=== PATIENT | female | born 1965 | race American Indian/Alaskan Native ===

== ENCOUNTER 2016-12-10 08:50 | Emergency (ER) | payer MEDICARE ==
[2016-12-10 11:03] LABS: Alanine Aminotransferase 16 units/L (7-56); Albumin 3.6 g/dL (3.9-5); Albumin/Globulin Ratio 1.2 %; Alkaline Phosphatase 70 units/L (35-129); Bilirubin,Total 0.4 mg/dL (0.1-1.2); Total Protein 6.6 g/dL (6.3-8.2); Uric Acid 4.5 mg/dL (3.5-7.6)
[2016-12-10 11:05] LABS: Anion Gap 15 mmol/L; Blood Urea Nitrogen 9 mg/dL (7-17); Calcium 8.9 mg/dL (8.4-10.2); Carbon Dioxide 22 mmol/L (22-30); Chloride 103.9 mmol/L (98-107); Glucose 78 mg/dL (65-100); Potassium 4.3 mmol/L (3.6-5.0); Sodium 137 mmol/L (137-145)
[2016-12-10 11:06] LABS: Bilirubin,Direct < 0.2 mg/dL (0-0.2)
[2016-12-10 11:07] LABS: INR TNR (0.87-1.13); Partial Thromboplastin Time TNR Sec. (24.2-36.6)
[2016-12-10] MEDS ORDERED: TORADOL IM ONE (11:17)
[2016-12-10 11:19] LABS: Basophils % (Auto) 0.6 % (0.0-1.8); Hemoglobin 13.4 gm/dl (10.1-14.3); Mean Corpuscular HGB Conc 32 % (30-34); Mean Corpuscular Hemoglobin 28 pg (28-32); Mean Corpuscular Volume 87 fl (79-97); Red Blood Count 4.82 M/mm3 (3.65-5.03); White Blood Count 5.5 K/mm3 (4.5-11.0)
--- NOTE | 2016-12-10 11:19 | Emergency Department Report ---
ED General Adult HPI - General Chief complaint: Shoulder Injury Stated complaint: RT SHOULDER PAIN Time Seen by Provider: 12/10/16 11:06 Source: patient, RN notes reviewed, old records reviewed Mode of arrival: Ambulatory Limitations: No Limitations - History of Present Illness Initial comments: This is a 51-year-old female. She is a past medical history of diabetes and hypertension. The patient presents to the ER complaining of right-sided shoulder pain. The shoulder pain is at the shoulder, it does not radiate anywhere. It increases with palpation, and decreases with rest. There is no nausea, vomiting, diaphoresis, chest pain, shortness of breath. The patient reports a positive test in [place] in September. She is concerned that she may be . She is not homicidal or suicidal. She does not have access to guns or firearms. She is not experiencing hallucinations. She reports that she is taking Tylenol for pain. She reports no allergic reactions to Tylenol, even though her allergies listed include acetaminophen from Lortab. -: Gradual Location: right, upper extremity Severity scale (0 -10): 10 Quality: aching Consistency: intermittent Improves with: none Worsens with: none Associated Symptoms: denies other symptoms. denies: confusion, chest pain, cough, diaphoresis, fever/chills, headaches, loss of appetite, malaise, nausea/ vomiting, rash, seizure, shortness of breath, syncope, weakness - Related Data Home Medications Medication Instructions Recorded Confirmed Last Taken amLODIPine [Norvasc] 10 mg PO DAILY 05/22/15 12/10/16 3 Days Ago buPROPion [Wellbutrin] 150 mg PO BID 05/22/15 12/10/16 3 Days Ago metFORMIN [Glucophage] 500 mg PO BID 05/22/15 12/10/16 3 Days Ago Previous Rx's Medication Instructions Recorded Last Taken Type Quetiapine Fumarate [Seroquel] 100 mg PO BID #14 tablet 03/25/16 3 Days Ago Rx Ketorolac [Toradol] 10 mg PO Q6H PRN #20 tablet 12/10/16 Unknown Rx Allergies Allergy/AdvReac Type Severity Reaction Status Date / Time acetaminophen [From Lortab] Allergy Unknown Verified 12/10/16 10:37 hydrocodone bitartrate Allergy Unknown Verified 12/10/16 10:37 [From Lortab] ED Review of Systems ROS: Stated complaint: RT SHOULDER PAIN Other details as noted in HPI Constitutional: denies: fever, malaise Respiratory: denies: shortness of breath, SOB with exertion, SOB at rest Cardiovascular: denies: chest pain Gastrointestinal: denies: abdominal pain, nausea, diarrhea Genitourinary: denies: urgency, dysuria, discharge Musculoskeletal: arthralgia, myalgia Skin: denies: rash, lesions Neurological: as per HPI Psychiatric: denies: homicidal thoughts, suicidal thoughts ED Past Medical Hx - Past Medical History Previous Medical History?: Yes Hx Hypertension: Yes Hx CVA: Yes Hx Diabetes: Yes Hx Arthritis: Yes Hx Psychiatric Treatment: Yes (depression) Additional medical history: PTSD, anxiety - Surgical History Past Surgical History?: Yes Hx Cholecystectomy: Yes - Social History Smoking Status: Current Every Day Smoker Substance Use Type: None - Medications Home Medications: Home Medications Medication Instructions Recorded Confirmed Last Taken Type amLODIPine [Norvasc] 10 mg PO DAILY 05/22/15 12/10/16 3 Days Ago History buPROPion [Wellbutrin] 150 mg PO BID 05/22/15 12/10/16 3 Days Ago History metFORMIN [Glucophage] 500 mg PO BID 05/22/15 12/10/16 3 Days Ago History Quetiapine Fumarate [Seroquel] 100 mg PO BID #14 tablet 03/25/16 12/10/16 3 Days Ago Rx Ketorolac [Toradol] 10 mg PO Q6H PRN #20 tablet 12/10/16 Unknown Rx ED Physical Exam - General Limitations: No Limitations General appearance: alert, in no apparent distress - Head Head exam: Present: atraumatic, normocephalic - Eye Eye exam: Present: normal appearance, EOMI. Absent: nystagmus - ENT ENT exam: Present: normal exam, normal orophraynx, mucous membranes moist, normal external ear exam - Neck Neck exam: Present: normal inspection, full ROM. Absent: tenderness, meningismus - Respiratory Respiratory exam: Present: normal lung sounds bilaterally. Absent: respiratory distress, wheezes, rales, rhonchi, stridor, decreased breath sounds - Cardiovascular Cardiovascular Exam: Present: regular rate, normal rhythm, normal heart sounds. Absent: bradycardia, tachycardia, irregular rhythm, systolic murmur, diastolic murmur, rubs, gallop - GI/Abdominal GI/Abdominal exam: Present: soft, normal bowel sounds. Absent: distended, tenderness, guarding, rebound, rigid, pulsatile mass - Extremities Exam Extremities exam: Present: normal inspection, full ROM, tenderness, normal capillary refill, other (there is no redness, pus, streaking over the right shoulder. Patient has minimal pain with passive range of motion over the right shoulder. Compartments are soft, sensation intact to the deltoid, median, radial, ulnar distribution.). Absent: pedal edema, joint swelling, calf tenderness - Back Exam Back exam: Present: normal inspection, full ROM. Absent: tenderness, CVA tenderness (R), CVA tenderness (L), muscle spasm, paraspinal tenderness, vertebral tenderness - Neurological Exam Neurological exam: Present: alert, oriented X3, normal gait, other (Extraocular movements intact. Tongue midline. No facial droop. Facial sensation intact to light touch in the V1, V2, V3 distribution bilaterally. 5 and 5 strength in 4 extremities.. Sensation is intact to light touch in 4 extremities.). Absent : motor sensory deficit - Psychiatric Psychiatric exam: Present: normal affect, normal mood - Skin Skin exam: Present: warm, dry, intact, normal color. Absent: rash ED Course Vital Signs 12/10/16 12/10/16 12/10/16 09:17 09:53 10:48 Temperature 97.7 F 97.3 F L Pulse Rate 66 74 Respiratory 18 Rate Blood Pressure 155/111 Blood Pressure 150/86 [Left] O2 Sat by Pulse 100 100 Oximetry 12/10/16 13:00 Temperature Pulse Rate 86 Respiratory 16 Rate Blood Pressure Blood Pressure 157/90 [Left] O2 Sat by Pulse 100 Oximetry - Reevaluation(s) Reevaluation #1: 12/10/16 11:46 Differential diagnosis: Arthritis, DJD, false positive test Assessment and plan: 51-year-old female with complaints of shoulder pain for weeks. She has no chest pain or shortness of breath, she has no symptoms to suggest acute coronary syndrome, patient low risk by VARGHESE score, low risk by heart score. EKG and blood work ordered prior to my evaluation, I don't believe the patient requires an acute coronary syndrome risk stratification at this time. Patient does not appear psychotic, does not be 1013 criteria. She is instructed that she is not , and an x-ray did not do a straight fracture or dislocation, and her physical exam and history do not suggest septic joint. She felt improved after symptomatic therapy, and will be discharged with instructions to follow up with outpatient primary care/ orthopedics. She will be discharged at this time. 12/10/16 12:00 Reevaluation #2: 12/10/16 12:01 Platelet counts: 151 ED Medical Decision Making - Lab Data Result diagrams: 12/10/16 10:08 12/10/16 10:08 Vital Signs 12/10/16 12/10/16 12/10/16 09:17 09:53 10:48 Temperature 97.7 F 97.3 F L Pulse Rate 66 74 Respiratory 18 Rate Blood Pressure 155/111 Blood Pressure 150/86 [Left] O2 Sat by Pulse 100 100 Oximetry Lab Results 12/10/16 12/10/16 12/10/16 Range/Units 10:08 10:08 10:08 WBC 5.5 (4.5-11.0) K/mm3 RBC 4.82 (3.65-5.03) M/mm3 Hgb 13.4 (10.1-14.3) gm/dl Hct 42.0 (30.3-42.9) % MCV 87 (79-97) fl MCH 28 (28-32) pg MCHC 32 (30-34) % RDW 15.0 (13.2-15.2) % Lymph % (Auto) 39.8 H (13.4-35.0) % Bracken % (Auto) 13.2 H (0.0-7.3) % Eos % (Auto) 0.0 (0.0-4.3) % Baso % (Auto) 0.6 (0.0-1.8) % Lymph # 2.2 (1.2-5.4) K/mm3 Bracken # 0.7 (0.0-0.8) K/mm3 Eos # 0.0 (0.0-0.4) K/mm3 Baso # 0.0 (0.0-0.1) K/mm3 Seg Neutrophils % 46.4 (40.0-70.0) % Seg Neutrophils # 2.5 (1.8-7.7) K/mm3 PT TNR INR TNR APTT TNR Sodium 137 (137-145) mmol/L Potassium 4.3 (3.6-5.0) mmol/L Chloride 103.9 (98-107) mmol/L Carbon Dioxide 22 (22-30) mmol/L Anion Gap 15 mmol/L BUN 9 (7-17) mg/dL Creatinine 0.6 L (0.7-1.2) mg/dL Estimated GFR > 60 ml/min BUN/Creatinine Ratio 15.00 % Glucose 78 (65-100) mg/dL Uric Acid (3.5-7.6) mg/dL Calcium 8.9 (8.4-10.2) mg/dL Total Bilirubin (0.1-1.2) mg/dL Direct Bilirubin (0-0.2) mg/dL AST (5-40) units/L ALT (7-56) units/L Alkaline Phosphatase (35-129) units/L Troponin T < 0.010 (0.00-0.029) ng/mL NT-Pro-B Natriuret Pep (0-900) pg/mL Total Protein (6.3-8.2) g/dL Albumin (3.9-5) g/dL Albumin/Globulin Ratio % HCG, Quant (0-4) mIU/mL 12/10/16 12/10/16 Range/Units 10:08 10:24 WBC (4.5-11.0) K/mm3 RBC (3.65-5.03) M/mm3 Hgb (10.1-14.3) gm/dl Hct (30.3-42.9) % MCV (79-97) fl MCH (28-32) pg MCHC (30-34) % RDW (13.2-15.2) % Lymph % (Auto) (13.4-35.0) % Bracken % (Auto) (0.0-7.3) % Eos % (Auto) (0.0-4.3) % Baso % (Auto) (0.0-1.8) % Lymph # (1.2-5.4) K/mm3 Bracken # (0.0-0.8) K/mm3 Eos # (0.0-0.4) K/mm3 Baso # (0.0-0.1) K/mm3 Seg Neutrophils % (40.0-70.0) % Seg Neutrophils # (1.8-7.7) K/mm3 PT INR APTT Sodium (137-145) mmol/L Potassium (3.6-5.0) mmol/L Chloride (98-107) mmol/L Carbon Dioxide (22-30) mmol/L Anion Gap mmol/L BUN (7-17) mg/dL Creatinine (0.7-1.2) mg/dL Estimated GFR ml/min BUN/Creatinine Ratio % Glucose (65-100) mg/dL Uric Acid 4.5 (3.5-7.6) mg/dL Calcium (8.4-10.2) mg/dL Total Bilirubin 0.4 (0.1-1.2) mg/dL Direct Bilirubin < 0.2 (0-0.2) mg/dL AST 14 (5-40) units/L ALT 16 (7-56) units/L Alkaline Phosphatase 70 (35-129) units/L Troponin T (0.00-0.029) ng/mL NT-Pro-B Natriuret Pep 34.79 (0-900) pg/mL Total Protein 6.6 (6.3-8.2) g/dL Albumin 3.6 L (3.9-5) g/dL Albumin/Globulin Ratio 1.2 % HCG, Quant 1.24 (0-4) mIU/mL - EKG Data -: EKG Interpreted by Me EKG shows normal: sinus rhythm, axis, intervals, QRS complexes, ST-T waves Rate: normal - EKG Data When compared to previous EKG there are: previous EKG unavailable 12/10/16 11:48 sinus bradycardia, 56 bpm, normal axis, normal intervals, not morphologically consistent with STEMI, there is no prior EKG available for comparison. - Radiology Data Radiology results: image reviewed interpreted by me: Right shoulder x-ray negative for fracture/dislocation. 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 Critical care attestation.: If time is entered above; I have spent that time in minutes in the direct care of this critically ill patient, excluding procedure time. ED Disposition Clinical Impression: Right shoulder pain Disposition: DISCHARGED TO HOME OR SELFCARE Is pt being admited?: No Does the pt Need Aspirin: No Condition: Stable Instructions: Shoulder Sprain (ED), Calcific Tendinitis (ED) Additional Instructions: Take the pain medication as directed. Follow up with a primary care doctor or insurance plan specialist within the next [address] Valenzuela is a local primary care doctor. Dr. Aj is a local insurance plan specialist. Rest and avoid heavy lifting. Return to the ER right away with new pain, worsened pain, migration of pain, fevers or chills, intractable nausea or vomiting, inability to tolerate liquid feeds. Prescriptions: Ketorolac [Toradol] 10 mg PO Q6H PRN #20 tablet PRN Reason: Pain Referrals: PRIMARY CARE, [Primary Care Provider] - 3-5 Days RICA VALENZUELA JR, MD [Staff Physician] - 3-5 Days MARIANNE AJ MD [Staff Physician] - 3-5 Days
[2016-12-10 13:27] VITALS: BP 157/90
[2016-12-10 13:43] LABS: Platelet Count 151 K/mm3 (140-440)
--- NOTE | 2016-12-11 07:32 | XRay Report ---
RIGHT SHOULDER, 3 views: History: Right shoulder pain. Routine views demonstrate normal bony and soft tissue structures with normal joint alignment of the shoulder. IMPRESSION: Normal study.
== END 2016-12-10 13:10 | disposition home or self-care (01) ==
LOC: ED 08:50
DX: M25.511 Pain in right shoulder (principal); E11.9 Type 2 diabetes mellitus without complications; I10 Essential (primary) hypertension; Z79.84 Long term (current) use of oral hypoglycemic drugs; M19.90 Unspecified osteoarthritis, unspecified site; F32.9 Major depressive disorder, single episode, unspecified; F41.9 Anxiety disorder, unspecified; F43.10 Post-traumatic stress disorder, unspecified; F17.200 Nicotine dependence, unspecified, uncomplicated; Z90.49 Acquired absence of other specified parts of digestive tract; Z86.73 Personal history of transient ischemic attack (TIA), and cerebral infarction without residual deficits; Z88.6 Allergy status to analgesic agent; Z79.1 Long term (current) use of non-steroidal anti-inflammatories (NSAID); Z79.899 Other long term (current) drug therapy
CPT/HCPCS: 36415; 73030; 80048; 80074; 83880; 84484; 84550; 84702; 85025; 93005; 93010; 96372; 99284; J1885